=== PATIENT | female | born 1950 | race Caucasian/White ===

== ENCOUNTER 2020-07-05 10:12 | Observation (INO) ==
[2020-07-05] MEDS ORDERED: NS 1000 ML 1,000 ML IV ONE ×3 (10:41→13:21)
[2020-07-05] MEDS ORDERED: HumuLIN R SUBCUT ONE ×2 (10:47→12:00)
--- NOTE | 2020-07-05 10:53 | DR.EXTPAIN ---
HPI Time seen Time Seen by Provider: 07/05/20 10:41 PCP Primary Care Physician: fred lewis Complaint/Symptoms Chief Complaint:: diaphoretic and low bp with high blood sugar. new onset of diabetes in the recent past. was greater than 600 at the md office. pt has congested cough. Self Treatment fo Chief Complaint: taking insulin COVID-19 Coronavirus risk:travel/contact w/high risk person: No Has patient experienced Coronavirus symptoms: No Source History Provided: Patient Mode of arrival Mode of Arrival: Wheelchair Timing Onset of Chief Complaint: 07/04/20 PMH PMH Past Medical History: Yes Past Medical History: Asthma, COPD, Diabetes and Hypertension Past Surgical History: No Family History History of Family Medical Conditions: Yes Family Medical History: Diabetes Mellitus, Cancer, [place], Coronary Artery Disease, Heart Failure and Hypertension Social History Alcohol Use: None Do you use any recreational Drugs:: No Lives With: Family Lives Where: Home Travel Risk Coronavirus risk:travel/contact w/high risk person: No Has patient experienced Coronavirus symptoms: No Infectious screening In the last 2 months have you had wt loss of >10#?: NO Have you had fever, night sweats or hemotysis?: No Have you traveled outside the country in the last 6 months?: No Isolation: Standard ROS Review of Systems Constitutional: Weakness and Other (diaphoretic) Eyes: No Symptoms Reported ENTM: Ear Discharge Respiratoy: No Symptoms Reported Gastrointestinal/Abdominal: No Symptoms Reported Genitourinary: No Symptoms Reported Neurological: No Symptoms Reported Musculoskeletal: No Symptoms Reported Integumentary: No Symptoms Reported Hematologic/Lymphatic: No Symptoms Reported Endocrine: No Symptoms Reported Psychiatric: No Symptoms Reported All Other Systems: Reviewed and Negative PE Vital Signs Vitals: Temperature 97.8 F Pulse Rate [Right Brachial] 70 Pulse Rate 101 Respiratory Rate 20 Blood Pressure [Left Arm] 90/61 Blood Pressure 93/53 O2 Sat by Pulse Oximetry 98 General Limitations: No Limitations General Appearance: Alert and In No Apparent Distress; negative Lethargic and Obtunded Head Head Exam: Normal Inspection, Atraumatic and Normocephalic Eyes Eye exam: Normal Appearance, PERRL and EOMI; negative Scleral Icterus and Conjunctival Injection ENT ENT Exam: Normal Exam, Normal Oropharynx and Mucous Membranes Moist Neck Neck Exam: Normal Inspection, Full ROM and Trachea Midline; negative Tenderness, Meningismus and Lymphadenopathy Chest Chest Inspection: Normal Inspection and Symmetric Chest Wall Rise; negative Tenderness Respiratory Respiratory Exam: Bilateral: Rhonchi (at baseline per pt ) Cardiovascular Cardiovascular Exam: Regular Rate, Normal Rhythm and Normal Heart Sounds Abdominal Exam Abdominal Exam: Normal Inspection, Normal Bowel Sounds and Soft Extremities Extremities Exam: Normal Inspection and Full ROM; negative Tenderness and Edema Upper Extremities Shoulder Exam: Normal Inspection Arm Exam: Normal Inspection Lower Extremities Hip/Pelvis Exam: Normal Inspection Upper Leg Exam: Normal Inspection Knee Exam: Normal Inspection Lower Leg Exam: Normal Inspection Ankle Exam: Normal Inspection Gait Exam: Observed and Normal Back Back Exam: Normal Inspection and Full ROM; negative Tenderness, (R) CVA Tenderness, (L) CVA Tenderness and Muscle Spasm Neurological Neurological Exam: Alert, Oriented X3 and Normal Gait; negative Motor Sensory Deficit Psychiatric Psychiatric Exam: Normal Affect and Normal Mood Skin Skin Exam: Warm, Dry, Intact and Normal Color MDM Differential Diagnosis Differential Diagnosis: Other (DKA, uncontrolled DM sepsis uti ) COURSE Treatment Treatment: 1158h Accucheck 345 and SBP 98 will give 2nd liter of NS and 6u of Hum R s/c ROR Labs Reviewed Result Diagrams: 07/05/20 10:57 07/05/20 10:57 Laboratory: WBC 19.3 X10^3/uL (3.6-10.0) H 07/05/20 10:57 RBC 4.88 X10^6/uL (3.5-5.4) 07/05/20 10:57 Hgb 13.6 g/dL (12.0-16.0) 07/05/20 10:57 Hct 40.3 % (36.0-47.0) 07/05/20 10:57 MCV 82.5 fL (80.0-100.0) 07/05/20 10:57 MCH 27.7 pg (27.0-34.0) 07/05/20 10:57 MCHC 33.6 g/dL (33.0-35.0) 07/05/20 10:57 RDW 15.0 % (11.6-16.5) 07/05/20 10:57 Plt Count 285 X10^3/uL (150.0-450.0) 07/05/20 10:57 MPV 9.0 fL (7.4-11.0) 07/05/20 10:57 Neut % (Auto) 89.2 % (42.0-75.0) H 07/05/20 10:57 Lymph % (Auto) 6.4 % (21.0-51.0) L 07/05/20 10:57 Baker % (Auto) 3.8 % (0.0-13.0) 07/05/20 10:57 Eos % (Auto) 0.1 % (0.9-2.9) L 07/05/20 10:57 Baso % (Auto) 0.5 % (0.2-1.0) 07/05/20 10:57 Neut # (Auto) 17.2 x10^3/uL (2.2-4.8) H 07/05/20 10:57 Lymph # (Auto) 1.2 X10^3/uL (1.3-2.9) L 07/05/20 10:57 Baker # (Auto) 0.7 x10^3/uL (0.3-0.8) 07/05/20 10:57 Eos # (Auto) 0.0 x10^3/uL (0.0-0.2) 07/05/20 10:57 Baso # (Auto) 0.1 X10^3/uL (0.0-0.1) 07/05/20 10:57 Absolute Nucleated RBC 0.0 /100WBC 07/05/20 10:57 Sodium 136 mmol/L (136-145) 07/05/20 10:57 Corrected Sodium 143 mmol/L (136-145) 07/05/20 10:57 Potassium 3.7 mmol/L (3.5-5.1) 07/05/20 10:57 Chloride 97 mmol/L (98-107) L 07/05/20 10:57 Carbon Dioxide 20.0 mmol/L (21-32) L 07/05/20 10:57 BUN 59 mg/dL (7-18) H 07/05/20 10:57 Creatinine 1.95 mg/dL (0.55-1.02) H 07/05/20 10:57 Est GFR (MDRD) Af Amer 33 (>60) L 07/05/20 10:57 Est GFR (MDRD) Non-Af 27 (>60) L 07/05/20 10:57 Glucose 395 mg/dL (65-99) H 07/05/20 10:57 POC Glucose (mg/dL) 283 mg/dL (65-99) H 07/05/20 13:01 Calcium 9.3 mg/dL (8.5-10.1) 07/05/20 10:57 Corrected Calcium TNP 07/05/20 10:57 Total Bilirubin 0.80 mg/dL (0.2-1.0) 07/05/20 10:57 AST 30 Units/L (15-37) 07/05/20 10:57 ALT 30 Units/L (12-78) 07/05/20 10:57 Alkaline Phosphatase 78 Units/L (46-116) 07/05/20 10:57 Creatine Kinase 271 Units/L (26-192) H 07/05/20 10:57 CK-MB (CK-2) 6.1 ng/mL (0-4.0) H* 07/05/20 10:57 CK/CKMB % Calc 2.3 % (<4) 07/05/20 10:57 Troponin I < 0.02 ng/mL (0-1.5) 07/05/20 10:57 Total Protein 7.4 g/dL (6.4-8.2) 07/05/20 10:57 Albumin 3.8 g/dL (3.4-5.0) 07/05/20 10:57 Globulin 3.6 g/dL (2.5-4.5) 07/05/20 10:57 Albumin/Globulin Ratio 1.1 Ratio (1.1-2.1) 07/05/20 10:57 Specimen Type Clean catch urine 07/05/20 12:06 Urine Color Yellow (YELLOW) 07/05/20 12:06 Urine Appearance Hazy (CLEAR) 07/05/20 12:06 Urine pH 5.0 (5.0 - 8.0) 07/05/20 12:06 Ur Specific Early 1.015 (1.000-1.030) 07/05/20 12:06 Urine Protein 1+ (NEGATIVE) 07/05/20 12:06 Urine Glucose (UA) 4+ (NEGATIVE) 07/05/20 12:06 Urine Ketones 1+ (NEGATIVE) 07/05/20 12:06 Urine Occult Blood Negative (NEGATIVE) 07/05/20 12:06 Urine Nitrite Negative (NEGATIVE) 07/05/20 12:06 Urine Bilirubin 2+ (NEGATIVE) 07/05/20 12:06 Urine Urobilinogen 1+ (NORMAL) 07/05/20 12:06 Ur Leukocyte Esterase Negative (NEGATIVE) 07/05/20 12:06 Urine RBC 0-2 /HPF (0-3) 07/05/20 12:06 Urine WBC 0-2 /HPF (0-5) 07/05/20 12:06 Ur Squamous Epith Cells Moderate /HPF (NEGATIVE) 07/05/20 12:06 Urine Bacteria Trace /HPF (NEGATIVE) 07/05/20 12:06 Hyaline Casts Moderate /LPF (NEGATIVE) 07/05/20 12:06 Ur Culture Indicated? No/not indicated 07/05/20 12:06 Acetone, Semi-Quant Negative (NEGATIVE) 07/05/20 10:57 Opioid Opioid Risk Tool Age (Michael box if 16-45): No History of Preadolescent Sexual Abuse: No Total: 0 Total Score Risk Category: Low Risk Copyright: [facility] predicting aberrant behaviors Diagnosis Discharge Problem: Volume depletion, Uncontrolled diabetes mellitus Narrative Support Text: 1 Volume Depletion 2 Uncontrolled DM Instructions Forms: Precautions for COVID19 Patient Portal Social Distancing
[2020-07-05] MEDS ORDERED: NS 1000 ML 1,000 ML ONE ×3 (10:54→13:15)
[2020-07-05] MEDS ORDERED: HumuLIN R ONE (10:58)
[2020-07-05 11:17] LABS: BASOPHILS # (AUTO) 0.1 X10^3/uL (0.0-0.1); BASOPHILS % (AUTO) 0.5 % (0.2-1.0); EOSINOPHILS % (AUTO) 0.1 % (0.9-2.9); HEMATOCRIT 40.3 % (36.0-47.0); HEMOGLOBIN 13.6 g/dL (12.0-16.0); LYMPHOCYTES # (AUTO) 1.2 X10^3/uL (1.3-2.9); LYMPHOCYTES % (AUTO) 6.4 % (21.0-51.0); MEAN CORPUSCULAR HEMOGLOBIN 27.7 pg (27.0-34.0); MEAN CORPUSCULAR HGB CONC 33.6 g/dL (33.0-35.0); MEAN CORPUSCULAR VOLUME 82.5 fL (80.0-100.0); MONOCYTES # (AUTO) 0.7 x10^3/uL (0.3-0.8); MONOCYTES % (AUTO) 3.8 % (0.0-13.0); NEUTROPHILS # (AUTO) 17.2 x10^3/uL (2.2-4.8); NEUTROPHILS % (AUTO) 89.2 % (42.0-75.0); PLATELET COUNT 285 X10^3/uL (150.0-450.0); RED BLOOD COUNT 4.88 X10^6/uL (3.5-5.4); WHITE BLOOD COUNT 19.3 X10^3/uL (3.6-10.0)
[2020-07-05 11:42] LABS: BLOOD UREA NITROGEN 59 mg/dL (7-18); CALCIUM 9.3 mg/dL (8.5-10.1); CHLORIDE 97 mmol/L (98-107); COR NA(FOR HYPERGLY) 143 mmol/L (136-145); CREATININE 1.95 mg/dL (0.55-1.02); SODIUM 136 mmol/L (136-145); TROPONIN I < 0.02 ng/mL (0-1.5); eGFR NON BLACK RACES 27 (>60)
--- NOTE | 2020-07-05 12:01 | RAD ---
CHEST, PA/LAT ADULTHISTORY: HYPERGLYCEMIA/LEUKPCYTOSISStudy: PA and lateral views of the chest.Comparison:NoneFindings:The cardiomediastinal silhouette is normal.No focal consolidations, pleural effusions or pneumothorax. Osseous structures demonstrate no acute abnormality.IMPRESSION:1. No acute cardiopulmonary process.Electronically signed by: STEVEN MILLS (Jul 05, 2020 11:59:18)
[2020-07-05 12:10] LABS: ALANINE AMINOTRANSFERASE 30 Units/L (12-78); ALBUMIN 3.8 g/dL (3.4-5.0); ALKALINE PHOSPHATASE 78 Units/L (46-116); ASPARTATE AMINO TRANSFERASE 30 Units/L (15-37); CKMB % 2.3 % (<4); CREATINE KINASE 271 Units/L (26-192); TOTAL PROTEIN 7.4 g/dL (6.4-8.2)
[2020-07-05 12:11] LABS: CREATINE KINASE MB 6.1 ng/mL (0-4.0)
[2020-07-05 12:20] LABS: SERUM ACETONE NEGATIVE (NEGATIVE)
[2020-07-05 12:23] LABS: BILIRUBIN,URINE 2+ (NEGATIVE); BLOOD/HEMOGLOBIN,URINE NEGATIVE (NEGATIVE); GLUCOSE, URINE 4+ (NEGATIVE); KETONES,URINE 1+ (NEGATIVE); LEUKOCYTE ESTERASE ,URINE NEGATIVE (NEGATIVE); NITRITES,URINE NEGATIVE (NEGATIVE); PROTEIN,URINE 1+ (NEGATIVE); UROBILINOGEN,URINE 1+ (NORMAL)
[2020-07-05 12:34] LABS: APPEARANCE,URINE HAZY (CLEAR); BACTERIA,URINE TRACE /HPF (NEGATIVE); COLOR,URINE YELLOW (YELLOW); HYALINE CASTS, URINE MODERATE /LPF (NEGATIVE); RBC,URINE 0-2 /HPF (0-3); SQUAMOUS EPITHELIAL CELL,UR MODERATE /HPF (NEGATIVE)
[2020-07-05] MEDS: NS 1000 ML 1,000 ML IV SCH (14:13)
[2020-07-05] MEDS ORDERED: LIPITOR TAB 10 MG ONE (14:25)
[2020-07-05] MEDS ORDERED: ROCEPHIN 1 GRAM IV PREMIX 1 G/50 ML IV.SOLN. IV ONE (14:26)
[2020-07-05] MEDS: PROTONIX INJ 40 MG VIAL IVP SCH (14:33)
[2020-07-05] MEDS: ROCEPHIN VIAL 1 GRAM 1 G in NS 100 ML IV + SPIKE MINIBAG* 100 ML IV SCH (14:34)
[2020-07-05] MEDS: LIPITOR TAB 10 MG PO SCH (14:35)
[2020-07-05 14:37] VITALS: BMI 43.9
[2020-07-05 15:59] LABS: ABG BASE EXCESS -1.9 mmol/L (-2.0-2.0); ABG HCO3 22.2 mmol/L (22-26)
[2020-07-05 16:00] LABS: ABG ALLEN TEST POS; FRACTIONATED INSPIRED OXYGEN 21
[2020-07-05 16:04] LABS: RSV AG DETECTION NEGATIVE (NEGATIVE)
[2020-07-05 16:51] LABS: ALANINE AMINOTRANSFERASE 30 Units/L (12-78); ALBUMIN 3.6 g/dL (3.4-5.0); ALKALINE PHOSPHATASE 72 Units/L (46-116); ASPARTATE AMINO TRANSFERASE 54 Units/L (15-37); BLOOD UREA NITROGEN 53 mg/dL (7-18); CALCIUM 8.8 mg/dL (8.5-10.1); CARBON DIOXIDE 22.9 mmol/L (21-32); CHLORIDE 100 mmol/L (98-107); COR NA(FOR HYPERGLY) 139 mmol/L (136-145); CREATININE 1.45 mg/dL (0.55-1.02); SODIUM 137 mmol/L (136-145); TOTAL PROTEIN 7.9 g/dL (6.4-8.2); eGFR NON BLACK RACES 38 (>60)
[2020-07-05] MEDS: PROVENTIL NEB TX 0.083% 2.5MG/ 3ML NEB PRN (17:10)
--- NOTE | 2020-07-05 18:11 | DR.H&P ---
H&P - History & Physical for Day of: H&P Date: 07/05/20 - Chief Complaint Chief Complaint: ELEVATED BLOOD SUGAR, SOB, LOW BP, SWEATING - History of Present Illness History of Present Illness: PT IS 70 WF ER ADMISSION AFTER CO NEW ONSET DM WITH HYPERGLYCEMIA AND DIAPHORESIS WITH LOW BLOOD PRESSURE. PT HAS PMH OF HTN, RECENTLY HAD ELEVATED BLOOD SUGAR, UNCONTROLLED WITH DIET. PT REPORTS SHE FELT BAD OVER THE WEEK WITH BS 400'S. PT WAS STARTED ON SSI ON SATURDAY, F/U THIS AM WITH BS 408 IN OFFICE. PT HAD DIFFUSE WHEEZING AND THAT TIME AND BP 80/60. PT SENT TO ER FOR EVALUATION, THEN ADMISSION FOR ACUTE ILLNESS. - Past Medical History Past Medical History: Hypertension, Diabetes, COPD, Asthma - Family History Family Medical History: Diabetes Mellitus, Cancer, [place] - Social History Does patient currently use any type of tobacco product: No Have you used tobacco products in the last 12 months: No Type of Tobacco Use: None Does any household member use tobacco: No Alcohol Use: None Drug Use: None - Medications Home Medications: No Known Drug Allergies Allergy (Verified 07/05/20 10:21) CONTINUE taking the following medications apixaban [Eliquis] 5 mg PO BID 07/05/20 [History] atorvastatin 10 mg PO DAILY 07/05/20 [History] empagliflozin-linagliptin [Glyxambi] 1 tab PO QAM 07/05/20 [History] insulin aspart (niacinamide) [Fiasp U-100 Insulin] 1 sliding scale dose SUBCUT USEASDIRECTD 07/05/20 [History] lisinopril-hydrochlorothiazide 1 tab PO BID 07/05/20 [History] montelukast 10 mg PO DAILY 07/05/20 [History] - Review of Systems Constitutional: Sweats, Weakness Eyes: No Symptoms Reported ENT: No Symptoms Reported Respiratory: Cough, Shortness of Breath, Wheezing Cardiovascular: Edema Gastrointestinal: Nausea, Vomiting Genitourinary: Frequency Musculoskeletal: No Symptoms Reported Skin: No Symptoms Reported Neurological: No Symptoms Reported - Physical Exam Vital Signs: Temperature 97.9 F Pulse Rate [Left Brachial] 87 Pulse Rate [Right Brachial] 84 Pulse Rate 101 Respiratory Rate 20 Blood Pressure [Left Arm] 106/60 Blood Pressure 93/53 O2 Sat by Pulse Oximetry 99 Oriented: Normal Eyes: Normal Ear: Normal Nose: Normal Throat: Normal Respiratory: Wheezes Throughout Cardiovascular: Normal, Edema : Normal Auscultation: Bowel Sounds: Normal Palpation: Normal Tenderness: Normal Skin: Diaphoresis Musculoskeletal: Normal Psychiatric: Normal Speech Pattern: Clear, Appropriate - Assessment/Plan (1) Uncontrolled diabetes mellitus Status: Acute Plan: ADMIT, SSI. IV HYDRATION WITH STRICT I &OS. BP CONTROL, PPI, ZOFRAN PRN. VERIFY HOME MEDICATION, C XR ON ADMISSION. IV ROCEPHIN, DUO NEBS, CE AND EKG, ECHO (2) Acute renal failure Status: Acute (3) UTI (urinary tract infection) Status: Acute (4) Asthma exacerbation Status: Acute (5) DVT (deep venous thrombosis) Status: Acute (6) COPD (chronic obstructive pulmonary disease) Status: Acute - Allergies Allergies/Adverse Reactions: Allergies Allergy/AdvReac Type Severity Reaction Status Date / Time No Known Drug Allergies Allergy Verified 07/05/20 10:21
[2020-07-05] MEDS: SNACK - Diabetic Appropriate PO SCH (20:55)
[2020-07-05] MEDS: ELIQUIS PO SCH (20:55)
[2020-07-05] MEDS: HumuLIN R SC PRN (20:56)
[2020-07-06] MEDS: NS 1000 ML 1,000 ML IV SCH ×2 (03:12→18:12)
[2020-07-06] MEDS ORDERED: AMARYL TAB 4 MG ONE (05:19)
[2020-07-06] MEDS: HumuLIN R SC PRN ×4 (05:48→20:18)
[2020-07-06] MEDS: AMARYL TAB 4 MG PO SCH (06:07)
[2020-07-06 06:12] LABS: BASOPHILS % (AUTO) 0.4 % (0.2-1.0); EOSINOPHILS # (AUTO) 0.1 x10^3/uL (0.0-0.2); EOSINOPHILS % (AUTO) 1.1 % (0.9-2.9); HEMATOCRIT 36.3 % (36.0-47.0); HEMOGLOBIN 12.2 g/dL (12.0-16.0); LYMPHOCYTES # (AUTO) 1.7 X10^3/uL (1.3-2.9); LYMPHOCYTES % (AUTO) 16.9 % (21.0-51.0); MEAN CORPUSCULAR HEMOGLOBIN 27.9 pg (27.0-34.0); MEAN CORPUSCULAR HGB CONC 33.5 g/dL (33.0-35.0); MEAN CORPUSCULAR VOLUME 83.1 fL (80.0-100.0); MEAN PLATELET VOLUME 8.9 fL (7.4-11.0); MONOCYTES # (AUTO) 0.7 x10^3/uL (0.3-0.8); MONOCYTES % (AUTO) 6.7 % (0.0-13.0); NEUTROPHILS # (AUTO) 7.4 x10^3/uL (2.2-4.8); NEUTROPHILS % (AUTO) 74.9 % (42.0-75.0); PLATELET COUNT 210 X10^3/uL (150.0-450.0); RED BLOOD COUNT 4.37 X10^6/uL (3.5-5.4); WHITE BLOOD COUNT 9.8 X10^3/uL (3.6-10.0)
[2020-07-06 06:36] LABS: ALBUMIN 3.2 g/dL (3.4-5.0); CALCIUM 8.6 mg/dL (8.5-10.1); CARBON DIOXIDE 21.1 mmol/L (21-32); COR CA(FOR HYPOALB) 9.2 mg/dL (8.5-10.1); CREATININE 1.16 mg/dL (0.55-1.02)
[2020-07-06] MEDS ORDERED: KLOR-CON PO PRN (06:53)
[2020-07-06] MEDS ORDERED: POTASSIUM CHL 40 MEQ/NS 0.45% 500 ML IV PRN (06:53)
[2020-07-06] MEDS ORDERED: POTASSIUM CHL 60 MEQ/NS 0.45% 500 ML IV PRN (06:53)
[2020-07-06] MEDS ORDERED: POTASSIUM CHLORIDE LIQ 20 MEQ UDC PO PRN (06:53)
[2020-07-06] MEDS ORDERED: K-RIDER 10 MEQ/NS 100 ML 10 MEQ/100 ML BAG IV PRN (06:53)
[2020-07-06] MEDS ORDERED: MICRO K EXTEN CAP 10 MEQ PO PRN (06:53)
[2020-07-06] MEDS: ELIQUIS PO SCH ×2 (08:21→20:18)
[2020-07-06] MEDS: PROTONIX INJ 40 MG VIAL IVP SCH (08:22)
[2020-07-06] MEDS: LIPITOR TAB 10 MG PO SCH (08:22)
[2020-07-06] MEDS: ROCEPHIN VIAL 1 GRAM 1 G in NS 100 ML IV + SPIKE MINIBAG* 100 ML IV SCH (08:23)
[2020-07-06] MEDS: K-DUR TAB 20 MEQ PO PRN ×2 (08:23→12:42)
[2020-07-06] MEDS: MAGNESIUM SULFATE 1 GRAM/100 mL PREMIX 1 GM/100 ML BAG IV PRN ×2 (08:24→09:45)
[2020-07-06] MEDS: PROVENTIL NEB TX 0.083% 2.5MG/ 3ML NEB PRN ×2 (08:35→12:49)
[2020-07-06] MEDS: SNACK - Diabetic Appropriate PO SCH (20:18)
[2020-07-07] MEDS: HumuLIN R SC PRN (05:40)
[2020-07-07] MEDS: AMARYL TAB 4 MG PO SCH (06:01)
[2020-07-07 06:04] LABS: BASOPHILS % (AUTO) 0.6 % (0.2-1.0); EOSINOPHILS # (AUTO) 0.2 x10^3/uL (0.0-0.2); EOSINOPHILS % (AUTO) 2.4 % (0.9-2.9); HEMATOCRIT 35.6 % (36.0-47.0); HEMOGLOBIN 11.7 g/dL (12.0-16.0); LYMPHOCYTES # (AUTO) 1.8 X10^3/uL (1.3-2.9); LYMPHOCYTES % (AUTO) 25.5 % (21.0-51.0); MEAN CORPUSCULAR HEMOGLOBIN 27.4 pg (27.0-34.0); MEAN CORPUSCULAR HGB CONC 32.9 g/dL (33.0-35.0); MEAN CORPUSCULAR VOLUME 83.5 fL (80.0-100.0); MEAN PLATELET VOLUME 8.9 fL (7.4-11.0); MONOCYTES # (AUTO) 0.5 x10^3/uL (0.3-0.8); MONOCYTES % (AUTO) 6.8 % (0.0-13.0); NEUTROPHILS # (AUTO) 4.5 x10^3/uL (2.2-4.8); NEUTROPHILS % (AUTO) 64.7 % (42.0-75.0); PLATELET COUNT 191 X10^3/uL (150.0-450.0); RED BLOOD COUNT 4.26 X10^6/uL (3.5-5.4); RED CELL DISTRIBUTION WIDTH 15.6 % (11.6-16.5); WHITE BLOOD COUNT 6.9 X10^3/uL (3.6-10.0)
[2020-07-07] MEDS: NS 1000 ML 1,000 ML IV SCH ×2 (06:07→08:31)
[2020-07-07 06:29] LABS: ALANINE AMINOTRANSFERASE 31 Units/L (12-78); ALBUMIN 2.9 g/dL (3.4-5.0); ALKALINE PHOSPHATASE 61 Units/L (46-116); ASPARTATE AMINO TRANSFERASE 36 Units/L (15-37); BLOOD UREA NITROGEN 22 mg/dL (7-18); CALCIUM 8.7 mg/dL (8.5-10.1); CARBON DIOXIDE 24.7 mmol/L (21-32); CHLORIDE 105 mmol/L (98-107); COR CA(FOR HYPOALB) 9.6 mg/dL (8.5-10.1); COR NA(FOR HYPERGLY) 143 mmol/L (136-145); CREATININE 0.83 mg/dL (0.55-1.02); MAGNESIUM 2.3 mg/dL (1.7-2.9); SODIUM 140 mmol/L (136-145); TOTAL PROTEIN 6.1 g/dL (6.4-8.2); eGFR NON BLACK RACES > 60 (>60)
[2020-07-07] MEDS: ELIQUIS PO SCH (08:18)
[2020-07-07] MEDS: LIPITOR TAB 10 MG PO SCH (08:18)
[2020-07-07] MEDS: ROCEPHIN VIAL 1 GRAM 1 G in NS 100 ML IV + SPIKE MINIBAG* 100 ML IV SCH (08:18)
[2020-07-07] MEDS: PROTONIX INJ 40 MG VIAL IVP SCH (08:18)
[2020-07-07] MEDS: K-DUR TAB 20 MEQ PO PRN (08:19)
[2020-07-07 08:31] VITALS: BP 127/75
[2020-07-07] MEDS ORDERED: ZESTRIL TAB 10 MG PO SCH (09:00)
== END 2020-07-07 10:50 | disposition home or self-care (01) ==
LOC: MED/SURG 10:12 → ER 10:12 → MED/SURG 14:02
PROVIDERS: ADMIT Internal Medicine; ATTEND Internal Medicine

== ENCOUNTER 2021-06-27 13:17 | Inpatient (IN) ==
[2021-06-27 13:37] VITALS: BMI 43.5
--- NOTE | 2021-06-27 13:43 | DR.EXTPAIN ---
HPI Time seen Time Seen by Provider: 06/27/21 13:29 PCP Primary Care Physician: Lenin HPI Comment HPI Comment: PATIENT IS 71YR OLD FEMALE IN ER WITH LEFT ANKLE INJURY WITH OBVIOUS DILOCATION AND DEFOMITY. 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 NO LOC. DENIES ANY OTHER INJURY. Complaint/Symptoms Chief Complaint Doctor Comments: LEFT ANKLE INJURY AND DISLOCATION NOTED CONSTRUCTION EXECUTIVE. Chief Complaint:: Pt c/o pain to left ankle. She states she tripped over a skate. EMS reports obvious deformity and strong pulse. Pulse not checked at this time due to splint in place. COVID-19 Coronavirus risk:travel/contact w/high risk person: No Has patient experienced Coronavirus symptoms: No Source History Provided: Patient Mode of arrival Mode of Arrival: Stretcher Timing Onset of Chief Complaint: 06/27/21 Context History of: None Associated signs and symptoms Associated Signs and Symptoms: Pain and Swelling Other history Other History: DM, HTN PMH PMH Past Medical History: Yes Past Medical History: Diabetes and Hypertension Past Medical History Comment: chronic bronchitis Past Surgical History: No Family History History of Family Medical Conditions: Yes Family Medical History: Diabetes Mellitus, Cancer and [place] Social History Does patient currently use any type of tobacco product: No Have you used tobacco products in the last 12 months: No Type of Tobacco Use: None Does any household member use tobacco: No Alcohol Use: None Do you use any recreational Drugs:: No Lives With: Family Lives Where: Home Travel Risk Coronavirus risk:travel/contact w/high risk person: No Has patient experienced Coronavirus symptoms: No Infectious screening In the last 2 months have you had wt loss of >10#?: NO Have you had fever, night sweats or hemotysis?: No Have you traveled outside the country in the last 6 months?: No Isolation: Standard ROS Review of Systems Constitutional: No Symptoms Reported and See HPI; negative Fever, Weakness and Fatigue Eyes: No Symptoms Reported and See HPI ENTM: No Symptoms Reported and See HPI; negative Nose Discharge and Nose Congestion Respiratoy: No Symptoms Reported and See HPI; negative Moist Cough, Short of Breath and Wheezing Cardiovascular: No Symptoms Reported and See HPI; negative Chest Pain Gastrointestinal/Abdominal: No Symptoms Reported and See HPI; negative Abdominal Pain, Diarrhea and Vomiting Genitourinary: No Symptoms Reported and See HPI; negative Frequency and Hematuria Neurological: No Symptoms Reported and See HPI; negative Headache, Weakness and Dizziness Musculoskeletal: No Symptoms Reported, See HPI and Ankle (LEFT ANKLE SWELLING AND PAIN.) Integumentary: No Symptoms Reported, See HPI and Bruises Hematologic/Lymphatic: No Symptoms Reported and See HPI; negative Easy Bruising Endocrine: No Symptoms Reported and See HPI; negative Increased Thirst and Increased Urine Psychiatric: No Symptoms Reported and See HPI All Other Systems: Reviewed and Negative PE Vital Signs Vitals: Temperature 99.5 F Pulse Rate 68 Respiratory Rate 16 Blood Pressure [Left Arm] 127/75 Blood Pressure 135/68 O2 Sat by Pulse Oximetry 99 General Limitations: No Limitations General Appearance: Alert and In No Apparent Distress Head Head Exam: Normal Inspection Eyes Eye exam: Normal Appearance and PERRL; negative Scleral Icterus and Conjunctival Injection ENT ENT Exam: Normal Exam, Normal Oropharynx, Normal External Ear Exam and TM's Normal Bilaterally Neck Neck Exam: Normal Inspection and Trachea Midline; negative Tenderness and Lymphadenopathy Chest Chest Inspection: Normal Inspection and Symmetric Chest Wall Rise; negative Tenderness Respiratory Respiratory Exam: Normal Lung Sounds Bilat; negative Accessory Muscle Use, Chest Wall Tenderness and Respiratory Distress Respiratory Exam: Bilateral: Clear to Auscultation Cardiovascular Cardiovascular Exam: Regular Rate, Normal Rhythm and Normal Heart Sounds; negative Systolic Murmur and Diastolic Murmur Abdominal Exam Abdominal Exam: Normal Inspection, Normal Bowel Sounds and Soft; negative Tenderness Extremities Extremities Exam: Tenderness (LEFT ANKLE SWELLING AND TENDERNESS. OBVIOUS DEFORMITY AND DISLOCATION LEFT ANKLE.) and Normal Capillary Refill Back Back Exam: Normal Inspection Neurological Neurological Exam: Alert and Oriented X3; negative Motor Sensory Deficit Psychiatric Psychiatric Exam: Normal Affect and Normal Mood Skin Skin Exam: Warm, Dry, Intact and Normal Color MDM Differential Diagnosis Differential Diagnosis: Other (DISLOCATION LEFT ANKLE. FRACTURE LEFT ANKLE.) COURSE Treatment Treatment: SEE ORDERS. Consultation Consultation Comments: Education/Counseling Education/Counseling: Patient and Family Educated On: Diagnosis ROR Labs Reviewed Laboratory Results Reviewed?: Yes Result Diagrams: 06/27/21 14:27 06/27/21 14:27 Laboratory: WBC 9.8 X10^3/uL (3.6-10.0) 06/27/21 14:27 RBC 4.56 X10^6/uL (3.5-5.4) 06/27/21 14:27 Hgb 11.8 g/dL (12.0-16.0) L 06/27/21 14:27 Hct 35.9 % (36.0-47.0) L 06/27/21 14: MCV 78.7 fL (80.0-100.0) L 06/27/21 14: MCH 25.8 pg (27.0-34.0) L 06/27/21 14: MCHC 32.8 g/dL (33.0-35.0) L 06/27/21 14: RDW 15.1 % (11.6-16.5) 06/27/21 14: Plt Count 254 X10^3/uL (150.0-450.0) 06/27/21 14: MPV 8.1 fL (7.4-11.0) 06/27/21 14: Neut % (Auto) 83.1 % (42.0-75.0) H 06/27/21 14: Lymph % (Auto) 10.3 % (21.0-51.0) L 06/27/21 14: Motley % (Auto) 5.3 % (0.0-13.0) 06/27/21 14: Eos % (Auto) 0.5 % (0.9-2.9) L 06/27/21 14: Baso % (Auto) 0.8 % (0.2-1.0) 06/27/21 14: Neut # (Auto) 8.2 x10^3/uL (2.2-4.8) H 06/27/21 14: Lymph # (Auto) 1.0 X10^3/uL (1.3-2.9) L 06/27/21 14:27 Motley # (Auto) 0.5 x10^3/uL (0.3-0.8) 06/27/21 14: Eos # (Auto) 0.1 x10^3/uL (0.0-0.2) 06/27/21 14: Baso # (Auto) 0.1 X10^3/uL (0.0-0.1) 06/27/21 14: Absolute Nucleated RBC 0.1 /100WBC 06/27/21 14: Sodium 138 mmol/L (136-145) 06/27/21 14: Corrected Sodium 140 mmol/L (136-145) 06/27/21 14:27 Potassium 4.2 mmol/L (3.5-5.1) 06/27/21 14:27 Chloride 101 mmol/L (98-107) 06/27/21 14:27 Carbon Dioxide 27.6 mmol/L (21-32) 06/27/21 14:27 BUN 14 mg/dL (7-18) 06/27/21 14:27 Creatinine 1.04 mg/dL (0.55-1.02) H 06/27/21 14:27 Est GFR (MDRD) Af Amer > 60 (>60) 06/27/21 14:27 Est GFR (MDRD) Non-Af 56 (>60) L 06/27/21 14:27 Glucose 166 mg/dL (65-99) H 06/27/21 14:27 Calcium 8.7 mg/dL (8.5-10.1) 06/27/21 14:27 Corrected Calcium 9.3 mg/dL (8.5-10.1) 06/27/21 14:27 Total Bilirubin 0.40 mg/dL (0.2-1.0) 06/27/21 14:27 AST 18 Units/L (15-37) 06/27/21 14:27 ALT 18 Units/L (12-78) 06/27/21 14:27 Alkaline Phosphatase 70 Units/L (46-116) 06/27/21 14:27 Total Protein 6.6 g/dL (6.4-8.2) 06/27/21 14:27 Albumin 3.3 g/dL (3.4-5.0) L 06/27/21 14:27 Globulin 3.3 g/dL (2.5-4.5) 06/27/21 14:27 Albumin/Globulin Ratio 1.0 Ratio (1.1-2.1) L 06/27/21 14:27 XRAY XRAY Interpreted by: Radiologist (REPORT NOTED AND DISCUSSED WITH PATIENT.) and Self Opioid Opioid Risk Tool Age (Michael box if 16-45): No History of Preadolescent Sexual Abuse: No Total: 0 Total Score Risk Category: Low Risk Copyright: [facility] predicting aberrant behaviors Diagnosis Discharge Problem: Fracture dislocation of left ankle Qualifiers: Encounter type: initial encounter Fracture type: closed Qualified Code(s): S82.892A - Other fracture of left lower leg, initial encounter for closed fracture Instructions Forms: Precautions for COVID19 [facility] Patient Portal Social Distancing
[2021-06-27 14:33] LABS: BASOPHILS # (AUTO) 0.1 X10^3/uL (0.0-0.1); BASOPHILS % (AUTO) 0.8 % (0.2-1.0); EOSINOPHILS # (AUTO) 0.1 x10^3/uL (0.0-0.2); EOSINOPHILS % (AUTO) 0.5 % (0.9-2.9); HEMATOCRIT 35.9 % (36.0-47.0); HEMOGLOBIN 11.8 g/dL (12.0-16.0); LYMPHOCYTES % (AUTO) 10.3 % (21.0-51.0); MEAN CORPUSCULAR HEMOGLOBIN 25.8 pg (27.0-34.0); MEAN CORPUSCULAR HGB CONC 32.8 g/dL (33.0-35.0); MEAN CORPUSCULAR VOLUME 78.7 fL (80.0-100.0); MEAN PLATELET VOLUME 8.1 fL (7.4-11.0); MONOCYTES # (AUTO) 0.5 x10^3/uL (0.3-0.8); MONOCYTES % (AUTO) 5.3 % (0.0-13.0); NEUTROPHILS # (AUTO) 8.2 x10^3/uL (2.2-4.8); NEUTROPHILS % (AUTO) 83.1 % (42.0-75.0); PLATELET COUNT 254 X10^3/uL (150.0-450.0); RED BLOOD COUNT 4.56 X10^6/uL (3.5-5.4); RED CELL DISTRIBUTION WIDTH 15.1 % (11.6-16.5); WHITE BLOOD COUNT 9.8 X10^3/uL (3.6-10.0)
[2021-06-27 14:44] LABS: ALANINE AMINOTRANSFERASE 18 Units/L (12-78); ALBUMIN 3.3 g/dL (3.4-5.0); ALKALINE PHOSPHATASE 70 Units/L (46-116); ASPARTATE AMINO TRANSFERASE 18 Units/L (15-37); BLOOD UREA NITROGEN 14 mg/dL (7-18); CALCIUM 8.7 mg/dL (8.5-10.1); CARBON DIOXIDE 27.6 mmol/L (21-32); CHLORIDE 101 mmol/L (98-107); COR CA(FOR HYPOALB) 9.3 mg/dL (8.5-10.1); COR NA(FOR HYPERGLY) 140 mmol/L (136-145); CREATININE 1.04 mg/dL (0.55-1.02); SODIUM 138 mmol/L (136-145); TOTAL PROTEIN 6.6 g/dL (6.4-8.2); eGFR NON BLACK RACES 56 (>60)
[2021-06-27] MEDS ORDERED: NS 1000 ML 1,000 ML ONE (15:25)
[2021-06-27] MEDS ORDERED: DIPRIVAN VIAL ONE ×2 (15:40→16:56)
[2021-06-27] MEDS ORDERED: VERSED ONE (15:40)
[2021-06-27] MEDS ORDERED: KETALAR ONE (15:40)
[2021-06-27] MEDS ORDERED: BRIDION ONE (16:10)
[2021-06-27] MEDS ORDERED: FENTANYL VIAL INJ 100 mcg ONE ×2 (16:10→16:13)
[2021-06-27] MEDS ORDERED: OFIRMEV IV 1000 MG VIAL 1,000 MG/100 ML VIAL IV ONE (16:11)
[2021-06-27] MEDS ORDERED: ZEMURON 50 MG VIAL ONE (16:11)
[2021-06-27] MEDS ORDERED: PEPCID 20 MG IV PREMIX* 50 ML IV ONE (16:16)
[2021-06-27] MEDS ORDERED: ANCEF 1 GRAM IV PREMIX* 2 G/100 ML BAG IV ONE (16:21)
--- NOTE | 2021-06-27 16:28 | DR.CONSULT ---
CONSULT Consultation for Day of: Date: 06/27/21 Allergies Allergies Allergy/AdvReac Type Severity Reaction Status Date / Time No Known Drug Allergies Allergy Verified 07/05/20 10:21 Past Medical History Past Medical History: Diabetes and Hypertension Family History Family Medical History: Diabetes Mellitus, Cancer and [place] Social History Does patient currently use any type of tobacco product: No Have you used tobacco products in the last 12 months: No Type of Tobacco Use: None Does any household member use tobacco: No Alcohol Use: None Medications Home Medications: No Known Drug Allergies Allergy (Verified 07/05/20 10:21) Physical Exam Vital Signs: Temperature 99.5 F Pulse Rate 76 Respiratory Rate 20 Blood Pressure [Left Arm] 127/75 Blood Pressure 136/64 O2 Sat by Pulse Oximetry 93 Plan (1) Closed trimalleolar fracture of ankle: Status: Acute Plan: S: Mrs. Palma is a 71 year old female with a Hx of DM, Asthma, COPD. Patient presents to the ED after a fall at home around 11 am. She reports she slipped on a toy and broke her ankle. Patient states she did not hit her head and did not lose consciousness. She rates the pain at 2/10. She denies any f/c/n/v/sob/calf pain. O: left ankle with open lesion of laceration. No erythema and no edema. Skin tenting noted to the medial ankle from likely the tibia. The DP and PT pulses are intact. Cap fill is less than 3 seconds. Sensation intact to light touch. The left foot was dislocated posterior and lateral. A: Mrs. Palma is a 71 year old female with a left ankle dislocation. No open laceration. Neurovascular status intact. The radiographs show a trimalleolar fracture and dislocation. She is currently with VSS and NAD. The left ankle was reduced with out any issues. DP and PT pulses with sensation intact post reduction. P: Closed reduction in the ED Post reduction films CBC/CMP NPO Plan for the OR for Intraoperative reduction with application of external fixation. Patient to be admitted over night for observation. NWB on the left foot Please do not hesitate to contact me with any questions or concerns. [facility] [phone]
--- NOTE | 2021-06-27 16:29 | RAD ---
HISTORYSP CLOSED REDUCTIONSTUDYX-ray left ankle three viewsCOMPARISONX-ray from same dayFINDINGSOverlying casting structure is seen. There is reduction of the fracture/dislocation but ankle mortise remains widened. Fracture of the distal shaft of the fibula remains mildly displaced but little angulation is seen. Possible fracture of the posterior malleolus of the tibia.IMPRESSIONReduction of ankle dislocation and marked improvement of alignment of the fibular fracture.Electronically signed by: Solis Salcedo (Jun 27, 2021 16:27:35)
[2021-06-27] MEDS ORDERED: DUONEB 0.5 MG/3 MG (3 mL) NEB ONE (16:32)
[2021-06-27] MEDS ORDERED: REGLAN INJ 10 MG VIAL ONE (16:56)
[2021-06-27] MEDS ORDERED: ZOFRAN INJ 4 MG VIAL ONE (16:56)
[2021-06-27] MEDS ORDERED: NEO-SYNEPHRINE INJ ONE (16:56)
[2021-06-27] MEDS ORDERED: EPHEDRINE SULFATE INJ ONE (16:56)
[2021-06-27] MEDS ORDERED: TORADOL 30 MG VIAL ONE (16:56)
[2021-06-27] MEDS ORDERED: LTA KIT LIDOCAINE 4% ONE (16:56)
[2021-06-27] MEDS ORDERED: XYLOCAINE 2 % (PLAIN) ONE (16:56)
[2021-06-27] MEDS ORDERED: SUPRANE ONE (16:56)
--- NOTE | 2021-06-27 16:57 | RAD ---
HISTORYPRE OP ANKLESTUDYCHEST, 1 [id number]/2020FINDINGSThe lungs are clear. No pneumothorax or significant effusion.Heart probably large even accounting for magnification.Bones are unremarkable.EKG leads are noted.IMPRESSION1. Probable cardiomegaly2. No acute lung diseaseElectronically signed by: Samy Tillman (Jun 27, 2021 16:55:10)
--- NOTE | 2021-06-27 16:58 | RAD ---
ANKLE, LEFTHISTORY: Trauma with painStudy: 3 views of the left ankle.Comparison: NoneFindings:Acute comminuted fracture of the distal fibula. There is severe anterior and medial displacement of the tibia with respect to the talus.IMPRESSION:1. Acute fracture dislocation of the ankle.Electronically signed by: STEVEN MILLS (Jun 27, 2021 16:57:04)
[2021-06-27] MEDS ORDERED: ZOFRAN INJ 4 MG VIAL IVP PRN ×2 (18:51→19:12)
[2021-06-27] MEDS ORDERED: BARHEMSYS INJ IVP PRN (18:51)
[2021-06-27] MEDS ORDERED: PHENERGAN INJ 25 MG IM PRN (18:51)
[2021-06-27] MEDS ORDERED: BENADRYL INJ 50 MG VIAL IVP PRN (18:51)
[2021-06-27] MEDS ORDERED: DILAUDID INJ IVP PRN (18:51)
[2021-06-27] MEDS ORDERED: REGLAN INJ 10 MG VIAL IVP PRN (18:51)
[2021-06-27] MEDS ORDERED: MORPHINE SULFATE INJ 2 MG INJ ONE (18:56)
[2021-06-27] MEDS: NS 1000 ML 1,000 ML IV SCH (20:08)
[2021-06-27] MEDS: PERCOCET TAB 5/325 MG PO PRN (21:45)
--- NOTE | 2021-06-27 22:03 | MD.NOTE ---
Provider Note Note Note: Procedure Note. Mrs. Palma is a 71 year old female who presented to the ED today with a left dislocated trimalleolar fracture. Upon evaluation in the emergency department, it was determined that a closed reduction under conscious sedation and application of a posterior splint was warranted. This was discussed with the patient who expressed verbal and written consent. Pre-reduction diagnosis. 1. Trimalleolar left ankle fracture. 2. Dislocation left ankle. Post-reduction diagnosis. 1. Trimalleolar left ankle fracture. 2. Dislocation left ankle. Procedure: Conscious sedation was achieved via anesthesia department in the emergency department. Afterwards, traction with re-creation of the injury pattern was utilized to achieve reduction of the patient's ankle fracture. The patient was then placed into a posterior splint. The patient was aroused from conscious sedation and at this time it was noted that she had full sensation throughout dorsal and plantar foot distributions. The DP and PT pulse was audible on doppler post reduction. Post-reduction x-rays revealed good alignment on the AP, lateral and oblique images. Geovani [facility]. [phone]
--- NOTE | 2021-06-28 00:06 | CT ---
PROCEDURE: CT Left Ankle without Contrast .HISTORY: Status post closed reduction left ankle. Further evaluation.TECHNIQUE: Axial images were performed through the left ankle without the administration of IV contrast with multiplanar reformations . Dose reduction techniques including Automated Exposure Control (AEC) and adjustment of mA and kV were utilized .COMPARISON: 06/27/2021 left ankle.TECHNICAL QUALITY: Satisfactory .FINDINGS:Moderately comminuted fracture distal fibular diaphysis with generalized alignment.Mildly comminuted posterior malleolar fracture with anatomical alignment.There has been reduction of the patient's subluxation laterally at the ankle joint with anatomical alignment.No other acute bony abnormality.Internal fixation screw through the posterior calcaneus related external reduction.Mild hemorrhage about the ankle in the soft tissues.IMPRESSION:1. External reduction with screw through the calcaneus with anatomical alignment of the patient's lateral and posterior malleolar fractures.2. No subluxation at the ankle joint.Electronically signed by: Vinod Antoine (Jun 28, 2021 00:04:33)
[2021-06-28] MEDS: PERCOCET TAB 5/325 MG PO PRN ×3 (04:40→23:08)
[2021-06-28] MEDS: MORPHINE SULFATE INJ 2 MG INJ IVP PRN ×2 (07:40→14:00)
[2021-06-28] MEDS: LOVENOX INJ 40 MG SYR SC SCH (09:00)
[2021-06-28] MEDS: NS 1000 ML 1,000 ML IV SCH (10:28)
[2021-06-28] MEDS: PROVENTIL NEB TX 0.083% 2.5MG/ 3ML NEB SCH (20:00)
[2021-06-28] MEDS: SNACK - Diabetic Appropriate PO SCH (20:22)
[2021-06-28] MEDS: PLAQUENIL PO SCH (20:38)
--- NOTE | 2021-06-28 21:03 | PCM.PROG ---
Progress Note Progress Note for Day of Date of Exam: 06/28/21 Past Medical Family Social History Past Med/Fam/Surg Hx: No changes since H&P Allergies: Allergies No Known Drug Allergies Allergy (Verified 07/05/20 10:) Vital Signs and I&O's Vital Signs: Temperature 98.0 F Pulse Rate [Radial] 72 Pulse Rate 75 Respiratory Rate 20 Blood Pressure [Left Arm] 137/64 Blood Pressure 137/66 O2 Sat by Pulse Oximetry 94 Intake and Output: Intake & Output 06/25/21 06/26/21 06/27/21 06/28/21 23:59 23:59 23:59 23:59 Intake Total 1400 / 1400 2327 / 2327 Output Total 160 / 160 500 / 500 Balance 1240 / 1240 1827 / 1827 Physical Exam Mood Description: Calm Speech Pattern: Clear and Appropriate Laboratory and Diagnostics Result Diagrams: 06/27/21 14:27 06/27/21 14:27 Labs: Laboratory WBC 9.8 X10^3/uL (3.6-10.0) 06/27/21 14:27 RBC 4.56 X10^6/uL (3.5-5.4) 06/27/21 14:27 Hgb 11.8 g/dL (12.0-16.0) L 06/27/21 14:27 Hct 35.9 % (36.0-47.0) L 06/27/21 14:27 MCV 78.7 fL (80.0-100.0) L 06/27/21 14:27 MCH 25.8 pg (27.0-34.0) L 06/27/21 14:27 MCHC 32.8 g/dL (33.0-35.0) L 06/27/21 14:27 RDW 15.1 % (11.6-16.5) 06/27/21 14:27 Plt Count 254 X10^3/uL (150.0-450.0) 06/27/21 14:27 MPV 8.1 fL (7.4-11.0) 06/27/21 14:27 Neut % (Auto) 83.1 % (42.0-75.0) H 06/27/21 14:27 Lymph % (Auto) 10.3 % (21.0-51.0) L 06/27/21 14:27 [place] % (Auto) 5.3 % (0.0-13.0) 06/27/21 14:27 Eos % (Auto) 0.5 % (0.9-2.9) L 06/27/21 14:27 Baso % (Auto) 0.8 % (0.2-1.0) 06/27/21 14:27 Neut # (Auto) 8.2 x10^3/uL (2.2-4.8) H 06/27/21 14:27 Lymph # (Auto) 1.0 X10^3/uL (1.3-2.9) L 06/27/21 14:27 [place] # (Auto) 0.5 x10^3/uL (0.3-0.8) 06/27/21 14:27 Eos # (Auto) 0.1 x10^3/uL (0.0-0.2) 06/27/21 14:27 Baso # (Auto) 0.1 X10^3/uL (0.0-0.1) 06/27/21 14:27 Absolute Nucleated RBC 0.1 /100WBC 06/27/21 14:27 Sodium 138 mmol/L (136-145) 06/27/21 14:27 Corrected Sodium 140 mmol/L (136-145) 06/27/21 14:27 Potassium 4.2 mmol/L (3.5-5.1) 06/27/21 14:27 Chloride 101 mmol/L (98-107) 06/27/21 14:27 Carbon Dioxide 27.6 mmol/L (21-32) 06/27/21 14:27 BUN 14 mg/dL (7-18) 06/27/21 14:27 Creatinine 1.04 mg/dL (0.55-1.02) H 06/27/21 14:27 Est GFR (MDRD) Af Amer > 60 (>60) 06/27/21 14:27 Est GFR (MDRD) Non-Af 56 (>60) L 06/27/21 14:27 Glucose 166 mg/dL (65-99) H 06/27/21 14:27 POC Glucose (mg/dL) 164 mg/dL (65-99) H 06/28/21 20:03 Calcium 8.7 mg/dL (8.5-10.1) 06/27/21 14:27 Corrected Calcium 9.3 mg/dL (8.5-10.1) 06/27/21 14:27 Total Bilirubin 0.40 mg/dL (0.2-1.0) 06/27/21 14:27 AST 18 Units/L (15-37) 06/27/21 14:27 ALT 18 Units/L (12-78) 06/27/21 14:27 Alkaline Phosphatase 70 Units/L (46-116) 06/27/21 14:27 Total Protein 6.6 g/dL (6.4-8.2) 06/27/21 14:27 Albumin 3.3 g/dL (3.4-5.0) L 06/27/21 14:27 Globulin 3.3 g/dL (2.5-4.5) 06/27/21 14:27 Albumin/Globulin Ratio 1.0 Ratio (1.1-2.1) L 06/27/21 14:27 Plan (1) Closed trimalleolar fracture of ankle: Status: Acute Plan: S: Mrs. Palma is a 71 year old female who is s/p left LE reduction of dislocated left ankle with application of multi-planer external fixator. Left foot with the dressing intact. Elevated over 2 pillows. Minimal pain. She denies any f/c/n/v/sob/calf pain. O: She is alert and oriented x3 Left LE with sensation intact. DP and PT pulses intact. Cap fill is less than 3 sec. External fixation is stable. Patient is able to move her digits without pain. A: 71 year old female who is s/p left LE reduction of dislocated left ankle with application of multi-planer external fixator, DOS was 06/27. Neurovascular status intact. CT with evidence of fibular fracture, posterior may fracture with the hardware intact. She is with VSS and NAD. Patient with a Hx of DVT and will need to continue to take Lovenox. P: Continue to elevate over 2 pillows. No dressing change needed NWB on the Left PT eval prior to discharge. She will need this for help with transfers. I do not think crutches or a walker will be good for her and I believe that she would benefit from using a wheelchair. I am ok for discharge once the hospitalist/PCP agrees Rx's for Percocet, Zofran, and Lovenox are in the chart. She is to follow up with Dr. Wright on Saturday. Tentative plan for the OR on Thursday 07/05. Will monitor Please do not hesitate to contact me with questions or concerns. Geovani Newman, [facility] [phone]
--- NOTE | 2021-06-28 21:56 | DR.OPNOTE ---
OP NOTE Pre-Op Diagnosis: 1. Dislocation left ankle. 2. Left Trimalleolar ankle fracture. Post-Op Diagnosis: 1. Dislocation left ankle. 2. Left Trimalleolar ankle fracture. Procedure Date Date Of Procedure: 06/27/21 Procedure: 1.Reduction of dislocated left ankle 2.Left LE application of an multi-planer external fixator 3.Intraoperative use of fluoroscopy. Type of Anesthesia: General Anesthetic w/mask Findings: see text Specimen/Pathology: none Type of Fluids Used:: Normal Saline EBL: minimal Drains/Tubes Placed: None Hardware: Metalogic multiplane ex fix Cultures: none Complications:: none Needle/Sponge Count:: correct Disposition/Condition: Podiatric Surgery Operative Report Patient: Keerthi Palma Date of procedure 06/27/21 Surgeon: Geovani Newman DPM Web Operations Administrator: None Pre-Op Diagnosis: 1. Dislocation left ankle. 2. Trimalleolar left ankle fracture. Post Op Diagnosis: 1. Dislocation left ankle. 2. Trimalleolar left ankle fracture. Procedure: Procedure(s): 1. Reduction of dislocated left ankle 2. Left LE application of an multi-planer external fixator 3. Intraoperative use of fluoroscopy. Anesthesia: General Hemostasis: Left thigh tourniquet. 60 min Estimated Blood Loss: <10cc Products Used: Metalogix multiplane external Ex-fix Complications: None Patient Condition: Stable Indication for Procedure Patient presented to the ED today with a left dislocated ankle and trimalleolar fracture. Upon evaluation it was determined that the ankle was not stable which was also confirmed with radiographs. I believed the patient would benefit from added stability with multi plane external fixation. Surgical intervention was discussed with the patient at length including the course of the procedure and post-operative care, as well as future plan of care and follow up. The benefits, including reduction in pain, reduction in deformity, improved gait, better quality of life was discussed. Risks were also discussed at length; Those discussed include, but were not limited to: residual or new onset infection, increase in pain, bleeding, amputation, DVT, PE, adverse reaction to anesthesia, and the low but present risk of loss of life. The patient related understanding of the surgical course and post-operative expectations, the potential benefits of the procedure, and the inherent risks of this surgical procedure. Consent was presented, discussed, and kindly signed by the patient. Procedure in Detail The patient was brought into the operating room and safely transferred to the operating table in the supine position. General anesthesia was induced. A thigh tourniquet was then applied to the left extremity. The patient was administered as prophylactic preoperative antibiotics with 2 grams of Ancef. After the application of copious layers of cast padding, a tourniquet was applied to the left thigh. The left foot, ankle and leg were then scrubbed, prepped and draped in a meticulous aseptic manner. A time-out was held and pertinent information including the patient name, allergies, surgical site, laterality, antibiotics, and fire risk were reviewed. The left leg was exsanguinated with an Esmark bandage and the tourniquet was inflated to 300 mmHg. Attention was then directed to the left extremity along the fracture site. Intra operative use of fluoroscopy was used to confirm this. First, the I determined the placement of the first 5.0 half pin using intraoperative fluoroscopy. The pin was placed bi-cortically at the middle 1/3 of the tibia at the mid level of the medial surface of the tibia from anterior to posterior. Next, another 5.0 half pin was placed 6 cm distally to the first pin. The second pin trajectory was placed parallel to the first. The 2nd pin was also bi-cortical which was confirmed with fluoro. Next, a z plate was then applied to both half pins. Next, a 6.0 Denae pin was placed in the calcaneus from the medial to lateral in the posterior tuber with the assistance of fluoroscopy. I advanced the Denae pin until the threads were in the calcaneus. The placement of the 6.0 pin was confirmed with fluoro. Next, a 120 mm N plate was attached to the 6.0 pin. The plate was 2 finger lengths away from the skin surface and was placed parallel to the weight bearing surface. Next, a 2.0 smooth pin was placed in the same place but about 30 degrees from medial to lateral into the calcaneus. Next, a second 2.0 smooth pin was placed into the calcaneus in the same place and at about 30 degrees. Next, the two 2.0 smooth pins were tensioned. Next, 3 rapid adjusting struts were applied with one medial, one lateral and the other posterior. Next, I applied traction and reduced the dislocated ankle with attempt to get talus under the tibia and the fibula out to length which was confirmed using fluoroscopy. I then tightened the struts to keep the ex-fix out to length. Next, the redundant 3 half pins were cut and end caps were applied to each. The tourniquet was then released with a total time of 60 minutes. Next, a sterile doppler was used to check the DP and PT pulses which were audible. Next, zeroform was applied to the pins at the level of the skin and the foot was dressed with 4x4s anu and liliya. The patient tolerated the procedure and anesthesia well and was transferred to the Recovery Room with vital signs stable. Following a period of postoperative monitoring the patient will be transferred to his inpatient room and admitted for observation. She is to be non-weightbearing on the left foot and to keep the dressing dry and intact. Patient will follow up with ankle and foot on Saturday.
[2021-06-29] MEDS: NS 1000 ML 1,000 ML IV SCH ×2 (01:22→13:57)
[2021-06-29] MEDS: MORPHINE SULFATE INJ 2 MG INJ IVP PRN ×2 (02:05→23:58)
[2021-06-29 05:47] LABS: BASOPHILS # (AUTO) 0.1 X10^3/uL (0.0-0.1); BASOPHILS % (AUTO) 1.2 % (0.2-1.0); EOSINOPHILS # (AUTO) 0.2 x10^3/uL (0.0-0.2); EOSINOPHILS % (AUTO) 1.9 % (0.9-2.9); HEMATOCRIT 33.1 % (36.0-47.0); HEMOGLOBIN 10.9 g/dL (12.0-16.0); LYMPHOCYTES # (AUTO) 1.7 X10^3/uL (1.3-2.9); LYMPHOCYTES % (AUTO) 18.5 % (21.0-51.0); MEAN CORPUSCULAR VOLUME 78.6 fL (80.0-100.0); MEAN PLATELET VOLUME 8.9 fL (7.4-11.0); MONOCYTES # (AUTO) 0.7 x10^3/uL (0.3-0.8); MONOCYTES % (AUTO) 7.5 % (0.0-13.0); NEUTROPHILS # (AUTO) 6.4 x10^3/uL (2.2-4.8); NEUTROPHILS % (AUTO) 70.9 % (42.0-75.0); PLATELET COUNT 178 X10^3/uL (150.0-450.0); RED BLOOD COUNT 4.21 X10^6/uL (3.5-5.4); RED CELL DISTRIBUTION WIDTH 15.3 % (11.6-16.5)
[2021-06-29 06:04] LABS: ALANINE AMINOTRANSFERASE 12 Units/L (12-78); ALBUMIN 2.8 g/dL (3.4-5.0); ALKALINE PHOSPHATASE 61 Units/L (46-116); ASPARTATE AMINO TRANSFERASE 18 Units/L (15-37); BLOOD UREA NITROGEN 8 mg/dL (7-18); CALCIUM 8.5 mg/dL (8.5-10.1); CARBON DIOXIDE 25.5 mmol/L (21-32); CHLORIDE 102 mmol/L (98-107); COR CA(FOR HYPOALB) 9.5 mg/dL (8.5-10.1); COR NA(FOR HYPERGLY) 136 mmol/L (136-145); CREATININE 0.64 mg/dL (0.55-1.02); SODIUM 136 mmol/L (136-145); TOTAL PROTEIN 6.1 g/dL (6.4-8.2); eGFR NON BLACK RACES > 60 (>60)
[2021-06-29] MEDS: AMARYL TAB 4 MG PO SCH (08:08)
[2021-06-29] MEDS: FERROUS GLUCONATE PO SCH (08:08)
[2021-06-29] MEDS: LIPITOR TAB 10 MG PO SCH (08:08)
[2021-06-29] MEDS: ZESTRIL TAB 10 MG PO SCH (08:09)
[2021-06-29] MEDS: ZESTORETIC 10/ 12.5MG PO SCH (08:09)
[2021-06-29] MEDS: PLAQUENIL PO SCH ×2 (08:09→20:45)
[2021-06-29] MEDS: LOVENOX INJ 40 MG SYR SC SCH (08:09)
[2021-06-29] MEDS: SINGULAIR TAB 10 MG PO SCH (08:09)
[2021-06-29] MEDS ORDERED: PATIENT'S HOME MEDICATION (Lisinopril-Hydrochlorothiazide 20-12.5 mg tablet) PO SCH (09:00)
[2021-06-29] MEDS: PERCOCET TAB 5/325 MG PO PRN ×2 (09:40→18:52)
[2021-06-29] MEDS: SNACK - Diabetic Appropriate PO SCH (20:10)
[2021-06-30] MEDS: NS 1000 ML 1,000 ML IV SCH ×2 (05:14→17:04)
[2021-06-30 06:13] LABS: BASOPHILS # (AUTO) 0.1 X10^3/uL (0.0-0.1); BASOPHILS % (AUTO) 0.6 % (0.2-1.0); EOSINOPHILS # (AUTO) 0.2 x10^3/uL (0.0-0.2); EOSINOPHILS % (AUTO) 1.7 % (0.9-2.9); HEMATOCRIT 32.2 % (36.0-47.0); HEMOGLOBIN 10.6 g/dL (12.0-16.0); LYMPHOCYTES # (AUTO) 1.4 X10^3/uL (1.3-2.9); LYMPHOCYTES % (AUTO) 14.2 % (21.0-51.0); MEAN CORPUSCULAR HEMOGLOBIN 25.7 pg (27.0-34.0); MEAN CORPUSCULAR VOLUME 77.7 fL (80.0-100.0); MEAN PLATELET VOLUME 8.3 fL (7.4-11.0); MONOCYTES # (AUTO) 0.7 x10^3/uL (0.3-0.8); MONOCYTES % (AUTO) 7.5 % (0.0-13.0); NEUTROPHILS # (AUTO) 7.4 x10^3/uL (2.2-4.8); PLATELET COUNT 224 X10^3/uL (150.0-450.0); RED BLOOD COUNT 4.14 X10^6/uL (3.5-5.4); RED CELL DISTRIBUTION WIDTH 15.3 % (11.6-16.5); WHITE BLOOD COUNT 9.7 X10^3/uL (3.6-10.0)
[2021-06-30 06:34] LABS: ALANINE AMINOTRANSFERASE 12 Units/L (12-78); ALBUMIN 2.7 g/dL (3.4-5.0); ALKALINE PHOSPHATASE 57 Units/L (46-116); ASPARTATE AMINO TRANSFERASE 14 Units/L (15-37); BLOOD UREA NITROGEN 9 mg/dL (7-18); CALCIUM 8.8 mg/dL (8.5-10.1); CARBON DIOXIDE 27.4 mmol/L (21-32); CHLORIDE 101 mmol/L (98-107); COR CA(FOR HYPOALB) 9.8 mg/dL (8.5-10.1); COR NA(FOR HYPERGLY) 136 mmol/L (136-145); CREATININE 0.63 mg/dL (0.55-1.02); SODIUM 136 mmol/L (136-145); TOTAL PROTEIN 5.9 g/dL (6.4-8.2); eGFR NON BLACK RACES > 60 (>60)
[2021-06-30] MEDS: PROVENTIL NEB TX 0.083% 2.5MG/ 3ML NEB SCH ×5 (07:03→20:10)
[2021-06-30] MEDS: LIPITOR TAB 10 MG PO SCH (08:13)
[2021-06-30] MEDS: AMARYL TAB 4 MG PO SCH (08:13)
[2021-06-30] MEDS: FERROUS GLUCONATE PO SCH (08:13)
[2021-06-30] MEDS: PLAQUENIL PO SCH ×2 (08:14→20:29)
[2021-06-30] MEDS: ZESTORETIC 10/ 12.5MG PO SCH (08:14)
[2021-06-30] MEDS: SINGULAIR TAB 10 MG PO SCH (08:14)
[2021-06-30] MEDS: LOVENOX INJ 40 MG SYR SC SCH (08:15)
[2021-06-30] MEDS: PERCOCET TAB 5/325 MG PO PRN (08:15)
[2021-06-30] MEDS: ZESTRIL TAB 10 MG PO SCH (08:15)
--- NOTE | 2021-06-30 14:27 | PCM.PROG ---
Progress Note - Progress Note for Day of Date of Exam: 06/30/21 - Subjective Subjective: Patient states she is continuing to have pain. Patient did require IV pain meds through the night as well as PO pain meds. Patient has worked with PT. Case management involved for discharge planning. Patient states her family will take care of her at home. Tentatively planned surgical procedure next week. No other concerns at present. Planning for discharge home with family in am. - Past Medical Family Social History Past Med/Fam/Surg Hx: No changes since H&P Allergies: Allergies No Known Drug Allergies Allergy (Verified 07/05/20 10:21) - Review of Systems ROS: No change since H&P - Vital Signs and I&O's Vital Signs: Temperature 98.4 F Pulse Rate [Radial] 81 Pulse Rate 84 Respiratory Rate 20 Blood Pressure [Left Arm] 118/60 Blood Pressure 137/66 O2 Sat by Pulse Oximetry 95 Intake and Output: Intake & Output 06/27/21 06/28/21 06/29/21 06/30/21 23:59 23:59 23:59 23:59 Intake Total 1400 / 1400 2627 / 2627 2761 / 2761 1270 / 1270 Output Total 160 / 160 1800 / 1800 4175 / 4175 1100 / 1100 Balance 1240 / 1240 827 / 827 -1414 / -1414 170 / 170 - Physical Exam Oriented: Normal Eyes: Normal Ear: Normal Nose: Normal Throat: Normal Respiratory: Normal Cardiovascular: Normal : Other ([place]ona intact) Auscultation: Bowel Sounds: Normal Palpation: Normal Tenderness: Normal Skin: Normal Musculoskeletal: Left, Leg (External fixator intact to left lower ext.) Psychiatric: Normal Mood Description: Calm, Happy Affect: Normal Speech Pattern: Clear, Appropriate - Laboratory and Diagnostics Result Diagrams: 06/30/21 05:22 06/30/21 05:22 Labs: 06/28/21 13:20 Urine,Clean Catch Urine Culture - Final Laboratory WBC 9.7 X10^3/uL (3.6-10.0) 06/30/21 05:22 RBC 4.14 X10^6/uL (3.5-5.4) 06/30/21 05:22 Hgb 10.6 g/dL (12.0-16.0) L 06/30/21 05:22 Hct 32.2 % (36.0-47.0) L 06/30/21 05:22 MCV 77.7 fL (80.0-100.0) L 06/30/21 05:22 MCH 25.7 pg (27.0-34.0) L 06/30/21 05:22 MCHC 33.0 g/dL (33.0-35.0) 06/30/21 05:22 RDW 15.3 % (11.6-16.5) 06/30/21 05:22 Plt Count 224 X10^3/uL (150.0-450.0) 06/30/21 05:22 MPV 8.3 fL (7.4-11.0) 06/30/21 05:22 Neut % (Auto) 76.0 % (42.0-75.0) H 06/30/21 05:22 Lymph % (Auto) 14.2 % (21.0-51.0) L 06/30/21 05:22 [place] % (Auto) 7.5 % (0.0-13.0) 06/30/21 05:22 Eos % (Auto) 1.7 % (0.9-2.9) 06/30/21 05:22 Baso % (Auto) 0.6 % (0.2-1.0) 06/30/21 05:22 Neut # (Auto) 7.4 x10^3/uL (2.2-4.8) H 06/30/21 05:22 Lymph # (Auto) 1.4 X10^3/uL (1.3-2.9) 06/30/21 05:22 [place] # (Auto) 0.7 x10^3/uL (0.3-0.8) 06/30/21 05:22 Eos # (Auto) 0.2 x10^3/uL (0.0-0.2) 06/30/21 05:22 Baso # (Auto) 0.1 X10^3/uL (0.0-0.1) 06/30/21 05:22 Absolute Nucleated RBC 0.0 /100WBC 06/30/21 05:22 Sodium 136 mmol/L (136-145) 06/30/21 05:22 Corrected Sodium 136 mmol/L (136-145) 06/30/21 05:22 Potassium 3.9 mmol/L (3.5-5.1) 06/30/21 05:22 Chloride 101 mmol/L (98-107) 06/30/21 05:22 Carbon Dioxide 27.4 mmol/L (21-32) 06/30/21 05:22 BUN 9 mg/dL (7-18) 06/30/21 05:22 Creatinine 0.63 mg/dL (0.55-1.02) 06/30/21 05:22 Est GFR (MDRD) Af Amer > 60 (>60) 06/30/21 05:22 Est GFR (MDRD) Non-Af > 60 (>60) 06/30/21 05:22 Glucose 117 mg/dL (65-99) H 06/30/21 05:22 POC Glucose (mg/dL) 118 mg/dL (65-99) H 06/30/21 11:30 Calcium 8.8 mg/dL (8.5-10.1) 06/30/21 05:22 Corrected Calcium 9.8 mg/dL (8.5-10.1) 06/30/21 05:22 Total Bilirubin 0.50 mg/dL (0.2-1.0) 06/30/21 05:22 AST 14 Units/L (15-37) L 06/30/21 05:22 ALT 12 Units/L (12-78) 06/30/21 05:22 Alkaline Phosphatase 57 Units/L (46-116) 06/30/21 05:22 Total Protein 5.9 g/dL (6.4-8.2) L 06/30/21 05:22 Albumin 2.7 g/dL (3.4-5.0) L 06/30/21 05:22 Globulin 3.2 g/dL (2.5-4.5) 06/30/21 05:22 Albumin/Globulin Ratio 0.8 Ratio (1.1-2.1) L 06/30/21 05:22 - Plan (1) Left leg pain Status: Acute Plan: Pain control (2) Uncontrolled pain Status: Acute Plan: Requiring IV pain meds. Plan for discharge in am (3) Closed trimalleolar fracture of ankle Status: Acute Plan: Podiatry following. PT following. Care management for discharge planning (4) Type 2 diabetes mellitus Status: Chronic Plan: Home meds. SSC (5) CKD (chronic kidney disease) Status: Acute Plan: Controlled. Repeat labs in am
--- NOTE | 2021-06-30 14:39 | PCM.PROG ---
Progress Note - Progress Note for Day of Date of Exam: 06/29/21 - Subjective Subjective: Patient states reports pain is controlled with current medications. Patient has not worked with PT. Patient is non weight bearing to E. Case management involved for discharge planning. Patient states her family will take care of her at home. No other concerns at present. Once patient has worked with PT and pain is controlled with PO meds patient can d/c home. - Past Medical Family Social History Past Med/Fam/Surg Hx: No changes since H&P Allergies: Allergies No Known Drug Allergies Allergy (Verified 07/05/20 10:21) - Review of Systems ROS: No change since H&P - Vital Signs and I&O's Vital Signs: Temperature 98.4 F Pulse Rate [Radial] 81 Pulse Rate 84 Respiratory Rate 20 Blood Pressure [Left Arm] 118/60 Blood Pressure 137/66 O2 Sat by Pulse Oximetry 95 Intake and Output: Intake & Output 06/27/21 06/28/21 06/29/21 06/30/21 23:59 23:59 23:59 23:59 Intake Total 1400 / 1400 2627 / 2627 2761 / 2761 1270 / 1270 Output Total 160 / 160 1800 / 1800 4175 / 4175 1100 / 1100 Balance 1240 / 1240 827 / 827 -1414 / -1414 170 / 170 - Physical Exam Oriented: Normal Eyes: Normal Ear: Normal Nose: Normal Throat: Normal Respiratory: Normal Cardiovascular: Normal : Other (Corona intact) Auscultation: Bowel Sounds: Normal Tenderness: Normal Skin: Normal Musculoskeletal: Left, Leg (External fixator intact to left lower ext.) Psychiatric: Normal Mood Description: Calm, Happy Affect: Normal Speech Pattern: Clear, Appropriate - Laboratory and Diagnostics Result Diagrams: 06/30/21 05:22 06/30/21 05:22 Labs: 06/28/21 13:20 Urine,Clean Catch Urine Culture - Final Laboratory WBC 9.7 X10^3/uL (3.6-10.0) 06/30/21 05:22 RBC 4.14 X10^6/uL (3.5-5.4) 06/30/21 05:22 Hgb 10.6 g/dL (12.0-16.0) L 06/30/21 05:22 Hct 32.2 % (36.0-47.0) L 06/30/21 05:22 MCV 77.7 fL (80.0-100.0) L 06/30/21 05:22 MCH 25.7 pg (27.0-34.0) L 06/30/21 05:22 MCHC 33.0 g/dL (33.0-35.0) 06/30/21 05:22 RDW 15.3 % (11.6-16.5) 06/30/21 05:22 Plt Count 224 X10^3/uL (150.0-450.0) 06/30/21 05:22 MPV 8.3 fL (7.4-11.0) 06/30/21 05:22 Neut % (Auto) 76.0 % (42.0-75.0) H 06/30/21 05:22 Lymph % (Auto) 14.2 % (21.0-51.0) L 06/30/21 05:22 [place] % (Auto) 7.5 % (0.0-13.0) 06/30/21 05:22 Eos % (Auto) 1.7 % (0.9-2.9) 06/30/21 05:22 Baso % (Auto) 0.6 % (0.2-1.0) 06/30/21 05:22 Neut # (Auto) 7.4 x10^3/uL (2.2-4.8) H 06/30/21 05:22 Lymph # (Auto) 1.4 X10^3/uL (1.3-2.9) 06/30/21 05:22 [place] # (Auto) 0.7 x10^3/uL (0.3-0.8) 06/30/21 05:22 Eos # (Auto) 0.2 x10^3/uL (0.0-0.2) 06/30/21 05:22 Baso # (Auto) 0.1 X10^3/uL (0.0-0.1) 06/30/21 05:22 Absolute Nucleated RBC 0.0 /100WBC 06/30/21 05:22 Sodium 136 mmol/L (136-145) 06/30/21 05:22 Corrected Sodium 136 mmol/L (136-145) 06/30/21 05:22 Potassium 3.9 mmol/L (3.5-5.1) 06/30/21 05:22 Chloride 101 mmol/L (98-107) 06/30/21 05:22 Carbon Dioxide 27.4 mmol/L (21-32) 06/30/21 05:22 BUN 9 mg/dL (7-18) 06/30/21 05:22 Creatinine 0.63 mg/dL (0.55-1.02) 06/30/21 05:22 Est GFR (MDRD) Af Amer > 60 (>60) 06/30/21 05:22 Est GFR (MDRD) Non-Af > 60 (>60) 06/30/21 05:22 Glucose 117 mg/dL (65-99) H 06/30/21 05:22 POC Glucose (mg/dL) 118 mg/dL (65-99) H 06/30/21 11:30 Calcium 8.8 mg/dL (8.5-10.1) 06/30/21 05:22 Corrected Calcium 9.8 mg/dL (8.5-10.1) 06/30/21 05:22 Total Bilirubin 0.50 mg/dL (0.2-1.0) 06/30/21 05:22 AST 14 Units/L (15-37) L 06/30/21 05:22 ALT 12 Units/L (12-78) 06/30/21 05:22 Alkaline Phosphatase 57 Units/L (46-116) 06/30/21 05:22 Total Protein 5.9 g/dL (6.4-8.2) L 06/30/21 05:22 Albumin 2.7 g/dL (3.4-5.0) L 06/30/21 05:22 Globulin 3.2 g/dL (2.5-4.5) 06/30/21 05:22 Albumin/Globulin Ratio 0.8 Ratio (1.1-2.1) L 06/30/21 05:22 - Plan (1) Left leg pain Status: Acute Plan: Pain control (2) Uncontrolled pain Status: Acute Plan: Requiring IV pain meds (3) Closed trimalleolar fracture of ankle Status: Acute Plan: Podiatry following. PT consulted. Care management for discharge planning (4) Type 2 diabetes mellitus Status: Chronic Plan: Home meds. SSC (5) CKD (chronic kidney disease) Status: Acute Plan: Controlled. Repeat labs in am
--- NOTE | 2021-06-30 14:59 | PCM.PROG ---
Progress Note - Progress Note for Day of Date of Exam: 06/28/21 - Subjective Subjective: Patient is a 71 year old white female who suffered a mechanical fall at home which resulted in left lower ext fracture. Patient is S/P surgical procedure with repair and external fixator to LLE. Patient has not worked with PT. Patient is non weight bearing to LLE. Case management involved for discharge planning. No other concerns at present. - Past Medical Family Social History Past Med/Fam/Surg Hx: No changes since H&P Allergies: Allergies No Known Drug Allergies Allergy (Verified 07/05/20 10:21) - Review of Systems ROS: No change since H&P - Vital Signs and I&O's Vital Signs: Temperature 98.4 F Pulse Rate [Radial] 81 Pulse Rate 84 Respiratory Rate 20 Blood Pressure [Left Arm] 118/60 Blood Pressure 137/66 O2 Sat by Pulse Oximetry 95 Intake and Output: Intake & Output 06/27/21 06/28/21 06/29/21 06/30/21 23:59 23:59 23:59 23:59 Intake Total 1400 / 1400 2627 / 2627 2761 / 2761 1270 / 1270 Output Total 160 / 160 1800 / 1800 4175 / 4175 1100 / 1100 Balance 1240 / 1240 827 / 827 -1414 / -1414 170 / 170 - Physical Exam Oriented: Normal Eyes: Normal Ear: Normal Nose: Normal Throat: Normal Respiratory: Normal Cardiovascular: Normal : Other (Corona intact) Auscultation: Bowel Sounds: Normal Tenderness: Normal Skin: Normal Musculoskeletal: Left, Leg (External fixator intact to left lower ext.) Psychiatric: Normal Mood Description: Calm, Happy Affect: Normal Speech Pattern: Clear, Appropriate - Laboratory and Diagnostics Result Diagrams: 06/30/21 05:22 06/30/21 05:22 Labs: 06/28/21 13:20 Urine,Clean Catch Urine Culture - Final Laboratory WBC 9.7 X10^3/uL (3.6-10.0) 06/30/21 05:22 RBC 4.14 X10^6/uL (3.5-5.4) 06/30/21 05:22 Hgb 10.6 g/dL (12.0-16.0) L 06/30/21 05:22 Hct 32.2 % (36.0-47.0) L 06/30/21 05:22 MCV 77.7 fL (80.0-100.0) L 06/30/21 05:22 MCH 25.7 pg (27.0-34.0) L 06/30/21 05:22 MCHC 33.0 g/dL (33.0-35.0) 06/30/21 05:22 RDW 15.3 % (11.6-16.5) 06/30/21 05:22 Plt Count 224 X10^3/uL (150.0-450.0) 06/30/21 05:22 MPV 8.3 fL (7.4-11.0) 06/30/21 05:22 Neut % (Auto) 76.0 % (42.0-75.0) H 06/30/21 05:22 Lymph % (Auto) 14.2 % (21.0-51.0) L 06/30/21 05:22 [place] % (Auto) 7.5 % (0.0-13.0) 06/30/21 05:22 Eos % (Auto) 1.7 % (0.9-2.9) 06/30/21 05:22 Baso % (Auto) 0.6 % (0.2-1.0) 06/30/21 05:22 Neut # (Auto) 7.4 x10^3/uL (2.2-4.8) H 06/30/21 05:22 Lymph # (Auto) 1.4 X10^3/uL (1.3-2.9) 06/30/21 05:22 [place] # (Auto) 0.7 x10^3/uL (0.3-0.8) 06/30/21 05:22 Eos # (Auto) 0.2 x10^3/uL (0.0-0.2) 06/30/21 05:22 Baso # (Auto) 0.1 X10^3/uL (0.0-0.1) 06/30/21 05:22 Absolute Nucleated RBC 0.0 /100WBC 06/30/21 05:22 Sodium 136 mmol/L (136-145) 06/30/21 05:22 Corrected Sodium 136 mmol/L (136-145) 06/30/21 05:22 Potassium 3.9 mmol/L (3.5-5.1) 06/30/21 05:22 Chloride 101 mmol/L (98-107) 06/30/21 05:22 Carbon Dioxide 27.4 mmol/L (21-32) 06/30/21 05:22 BUN 9 mg/dL (7-18) 06/30/21 05:22 Creatinine 0.63 mg/dL (0.55-1.02) 06/30/21 05:22 Est GFR (MDRD) Af Amer > 60 (>60) 06/30/21 05:22 Est GFR (MDRD) Non-Af > 60 (>60) 06/30/21 05:22 Glucose 117 mg/dL (65-99) H 06/30/21 05:22 POC Glucose (mg/dL) 118 mg/dL (65-99) H 06/30/21 11:30 Calcium 8.8 mg/dL (8.5-10.1) 06/30/21 05:22 Corrected Calcium 9.8 mg/dL (8.5-10.1) 06/30/21 05:22 Total Bilirubin 0.50 mg/dL (0.2-1.0) 06/30/21 05:22 AST 14 Units/L (15-37) L 06/30/21 05:22 ALT 12 Units/L (12-78) 06/30/21 05:22 Alkaline Phosphatase 57 Units/L (46-116) 06/30/21 05:22 Total Protein 5.9 g/dL (6.4-8.2) L 06/30/21 05:22 Albumin 2.7 g/dL (3.4-5.0) L 06/30/21 05:22 Globulin 3.2 g/dL (2.5-4.5) 06/30/21 05:22 Albumin/Globulin Ratio 0.8 Ratio (1.1-2.1) L 06/30/21 05:22 - Plan (1) Left leg pain Status: Acute Plan: Pain control (2) Uncontrolled pain Status: Acute Plan: Requiring IV pain meds (3) Closed trimalleolar fracture of ankle Status: Acute Plan: Podiatry following. Care management for discharge planning (4) Type 2 diabetes mellitus Status: Chronic Plan: Home meds. SSC (5) CKD (chronic kidney disease) Status: Acute Plan: Controlled. Repeat labs in am
[2021-06-30] MEDS: SNACK - Diabetic Appropriate PO SCH (20:29)
[2021-07-01 06:25] LABS: ALANINE AMINOTRANSFERASE 14 Units/L (12-78); ALBUMIN 2.7 g/dL (3.4-5.0); ALKALINE PHOSPHATASE 52 Units/L (46-116); ASPARTATE AMINO TRANSFERASE 17 Units/L (15-37); BLOOD UREA NITROGEN 9 mg/dL (7-18); CALCIUM 8.9 mg/dL (8.5-10.1); CARBON DIOXIDE 28.7 mmol/L (21-32); CHLORIDE 100 mmol/L (98-107); COR CA(FOR HYPOALB) 9.9 mg/dL (8.5-10.1); CREATININE 0.64 mg/dL (0.55-1.02); SODIUM 136 mmol/L (136-145); TOTAL PROTEIN 6.1 g/dL (6.4-8.2); eGFR NON BLACK RACES > 60 (>60)
[2021-07-01 06:29] LABS: HEMOGLOBIN 10.7 g/dL (12.0-16.0); MEAN CORPUSCULAR HEMOGLOBIN 26.1 pg (27.0-34.0); MEAN PLATELET VOLUME 8.4 fL (7.4-11.0)
[2021-07-01 06:36] LABS: BASOPHILS # (AUTO) 0.1 X10^3/uL (0.0-0.1); BASOPHILS % (AUTO) 0.7 % (0.2-1.0); EOSINOPHILS # (AUTO) 0.2 x10^3/uL (0.0-0.2); EOSINOPHILS % (AUTO) 1.7 % (0.9-2.9); HEMATOCRIT 31.7 % (36.0-47.0); LYMPHOCYTES # (AUTO) 1.5 X10^3/uL (1.3-2.9); LYMPHOCYTES % (AUTO) 15.7 % (21.0-51.0); MEAN CORPUSCULAR HGB CONC 33.7 g/dL (33.0-35.0); MEAN CORPUSCULAR VOLUME 77.5 fL (80.0-100.0); MONOCYTES # (AUTO) 0.7 x10^3/uL (0.3-0.8); MONOCYTES % (AUTO) 7.4 % (0.0-13.0); NEUTROPHILS # (AUTO) 7.2 x10^3/uL (2.2-4.8); NEUTROPHILS % (AUTO) 74.5 % (42.0-75.0); PLATELET COUNT 247 X10^3/uL (150.0-450.0); RED BLOOD COUNT 4.09 X10^6/uL (3.5-5.4); RED CELL DISTRIBUTION WIDTH 15.4 % (11.6-16.5); WHITE BLOOD COUNT 9.6 X10^3/uL (3.6-10.0)
[2021-07-01] MEDS: PROVENTIL NEB TX 0.083% 2.5MG/ 3ML NEB SCH (09:00)
[2021-07-01] MEDS: AMARYL TAB 4 MG PO SCH (09:19)
[2021-07-01] MEDS: FERROUS GLUCONATE PO SCH (09:20)
[2021-07-01] MEDS: ZESTRIL TAB 10 MG PO SCH (09:20)
[2021-07-01] MEDS: PLAQUENIL PO SCH (09:21)
[2021-07-01] MEDS: ZESTORETIC 10/ 12.5MG PO SCH (09:21)
[2021-07-01] MEDS: SINGULAIR TAB 10 MG PO SCH (09:22)
[2021-07-01] MEDS: LIPITOR TAB 10 MG PO SCH (09:22)
[2021-07-01] MEDS: LOVENOX INJ 40 MG SYR SC SCH (09:24)
[2021-07-01 11:33] VITALS: BP 132/67
--- NOTE | 2021-07-01 13:20 | NOTE.SOAP ---
Soap Note Note for Day of Date of Exam: 07/01/21 Subjective Data Subjective Data: Mrs. Palma is a 71 year old female who is s/p left LE reduction of dislocated left ankle with application of multi-planer external fixator, DOS was 06/27. Left foot with the dressing intact. Elevated over 2 pillows. Minimal pain. She has been NWB. She denies any f/c/n/v/sob/calf pain. Assessment Assessment: Mrs. Palma is a 71 year old female who is s/p left LE reduction of dislocated left ankle with application of multi-planer external fixator. Left foot with the dressing intact. Pain controlled. She denies any f/c/n/v/sob/calf pain. Plan Plan: Continue to elevate over 2 pillows. No dressing change needed NWB on the Left. Appreciate PT eval. I am ok for discharge Rx's for Percocet, Zofran, and Lovenox are in the chart. She is to follow up with Dr. Wright on Saturday. Tentative plan for the OR on Thursday 07/05. Will monitor Please do not hesitate to contact me with questions or concerns. Geovani Newman, [facility] [phone]
[2021-07-02] MEDS ORDERED: EXENATIDE MICROSPHERES 2 MG/0.85 ML SUBCUT SCH (09:00)
[2021-07-02] MEDS ORDERED: [UNRECOGNIZED DRUG - OTHER] SUBCUT SCH (09:00)
[2021-07-03] MEDS ORDERED: VITAMIN D (1.25MG) PO SCH (16:57)
== END 2021-07-01 14:15 | disposition home health service (06) | DRG 563 ==
LOC: ER 13:17 → MED/SURG 13:17
PROVIDERS: ADMIT Internal Medicine; ATTEND Internal Medicine
PROC: APEXFIX (2021-06-27 15:45)
DX: J44.9 Chronic obstructive pulmonary disease, unspecified; N18.9 Chronic kidney disease, unspecified; Y92.009 Unspecified place in unspecified non-institutional (private) residence as the place of occurrence of the external cause; I10 Essential (primary) hypertension; W01.0XXA Fall on same level from slipping, tripping and stumbling without subsequent striking against object, initial encounter; S93.05XA Dislocation of left ankle joint, initial encounter; S82.852A Displaced trimalleolar fracture of left lower leg, initial encounter for closed fracture; E11.65 Type 2 diabetes mellitus with hyperglycemia